=== PATIENT | male | born 1955 | race African-American/Black ===

== ENCOUNTER → 2025-09-22 10:48 | Outpatient (REF) | payer BC, SELFPAY | LOC: HWRCS 10:48 | PROVIDERS: ATTENDING PHYSICIAN Family Medicine; FAMILY PHYSICIAN Family Medicine | DX: Z01.818 Encounter for other preprocedural examination (principal); R94.31 Abnormal electrocardiogram [ECG] [EKG] | CPT/HCPCS: 78452; 93017; A9500; J2785 ==